=== PATIENT | male | born 1965 | race Caucasian/White ===

== ENCOUNTER 2018-05-25 08:05 | Day surgery (SDC) | payer BC ==
[2018-05-24 11:00] VITALS: BMI 30.2
[2018-05-25] MEDS ORDERED: Fentanyl 100 MCG/2 ML VIAL ONE ×2 (10:03→12:30)
[2018-05-25] MEDS ORDERED: Midazolam HCl 2 mg/2 ml Vial ONE (10:03)
[2018-05-25] MEDS ORDERED: Lidocaine 1% w/Epinephrine 1:100K 20 ML VIAL ONE (10:24)
--- NOTE | 2018-05-25 13:43 | OP ---
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 PROCEDURES PERFORMED: 1. Left superficial parotidectomy with facial nerve dissection. 2. Facial nerve monitoring. PROCEDURE IN DETAIL: After the consent was obtained, the patient was identified and brought to the OR, placed on the operating room table in the supine position. The patient was put under anesthesia and positioned for surgery. The neck was prepped and draped in sterile fashion. A facial nerve monitor was placed and documented to be functioning well. We then draped the patient's position and then proceeded with surgery. Preauricular incision was made and carried down through a natural skin crease 2 fingerbreadths below the angle of the jaw. We then made an incision and infiltrated with 1% lidocaine with 1:100,000 epinephrine. We then made the incision and carried down through the skin and subcutaneous tissues down to the level of the SMAS. We then raised an anterior flap and suture was secured the flap to the skin. We then dissected along the external auditory canal and anterior border of the sternocleidomastoid and was able to dissect down to the digastric muscle, where we found the trunk of the facial nerve and dissected it along its length. We then safely able to resect the tail of parotid lesion avoiding the branches of the facial nerve. The specimen was sent for permanent histologic evaluation. Hemostasis was obtained. The wound was closed in layers. Fibular and Surgicel were placed in the deep aspect of the wound. The skin was closed with 5-0 Monocryl for the deep tissues and 6-0 Prolene for the skin. The patient was awakened, extubated, and taken to the recovery room in a stable condition with facial nerve function in all branches. Job ID: [id number]
== END 2018-05-25 14:10 | disposition home or self-care (01) ==
LOC: SDC 08:05
PROVIDERS: ATTEND Specialist
PROC: 00BM0ZZ Excision of Facial Nerve, Open Approach (ICD-10-PCS; principal; 2018-05-25)
PROC: 0CB90ZZ Excision of Left Parotid Gland, Open Approach (ICD-10-PCS; principal; 2018-05-25)
DX: D11.0 Benign neoplasm of parotid gland (principal); Z88.1 Allergy status to other antibiotic agents
CPT/HCPCS: 88307; 93005; 93010; J2001; J2250; J3010